=== PATIENT | male | born 1975 | race Asian ===

== ENCOUNTER 2023-10-23 16:00 | Emergency (ER) | payer BC, OTHER ==
[~2023-10-23] VITALS: Ht 165.1 cm; Wt 70.5 kg
[~2023-10-23 16:00] MED LIST: ACET-2247 PO; AMOX1TAB16 PO; LOSA-382 PO; METR500 PO
[2023-10-23 16:29] VITALS: BP 155/103; PULSE 64; RESP 16; TEMP 98
[2023-10-23] MEDS: ACETAMINOPHEN 500 MG TABLET PO ONE (17:57)
[2023-10-23] MEDS: MECLIZINE HCL 25 MG TABLET PO ONE (17:57)
[2023-10-23 18:07] LABS: BASOPHILS % (AUTO) 0.5 % (0.0-2.0); EOSINOPHILS % (AUTO) 2.4 % (1.0-6.0); HEMATOCRIT 47.8 % (41-53); HEMOGLOBIN 16.1 g/dL (13.5-17.5); LYMPHOCYTES # (AUTO) 2.3 K/uL (1.0-4.8); LYMPHOCYTES % (AUTO) 20.4 % (22.0-44.0); MEAN CORPUSCULAR HGB CONC 33.7 G/dL (31.0-37.0); MEAN CORPUSCULAR VOLUME 92 fL (80-100); MONOCYTES # (AUTO) 1.2 K/uL (0.1-1.0); MONOCYTES % (AUTO) 10.9 % (2.0-9.0); NEUTROPHILS # (AUTO) 7.3 K/uL (1.8-7.7); NEUTROPHILS % (AUTO) 65.8 % (40.0-70.0); PLATELET COUNT (AUTO) 284 K/uL (150-450); RED CELL DISTRIBUTION WIDTH 12.9 % (11.5-14.5); WHITE BLOOD COUNT (AUTO) 11.2 K/uL (4.5-11.0)
[2023-10-23 18:12] LABS: ANION GAP 7 mmol/L (8-16); CALCIUM, TOTAL 9.4 mg/dL (8.8-10.5); CARBON DIOXIDE 31 mmol/L (22-29); CHLORIDE 103 mmol/L (98-107); CREATININE 1.17 mg/dL (0.60-1.30); GLOMERULAR FILTR. RATE CALC > 60 mL/min (>60); GLUCOSE,RANDOM 104 mg/dL (70-110); POTASSIUM 3.6 mmol/L (3.5-5.1); SODIUM SERUM 141 mmol/L (136-145); UREA NITROGEN, BLOOD 16 mg/dL (7-18)
[2023-10-23 18:17] LABS: ALANINE AMINOTRANSFERASE 60 U/L (12-78); ALBUMIN 4.3 g/dL (3.4-5.0); ALKALINE PHOSPHATASE 74 U/L (46-116); ASPARTATE AMINOTRANSFERASE 21 U/L (15-37); BILIRUBIN,TOTAL 0.6 mg/dL (0.1-1.0); TOTAL PROTEIN, SERUM 8.5 g/dL (6.4-8.2)
[2023-10-23] MEDS ORDERED: ACET-66 PO (18:55)
[2023-10-23] MEDS ORDERED: MECL-134 PO (18:55)
== END 2023-10-23 19:40 | disposition home or self-care (01) ==
LOC: EMS 16:01
DX: R42 Dizziness and giddiness (principal); I10 Essential (primary) hypertension; Z90.49 Acquired absence of other specified parts of digestive tract
CPT/HCPCS: 80053; 85025; 99283